=== PATIENT | male | born 1990 | race Caucasian/White ===

== ENCOUNTER 2021-03-31 17:52 | Emergency (ER) | payer OTHER ==
[2021-03-31 19:28] LABS: BASOPHIL 0.3 % (0-2); HCT 44.3 % (42.0-52.0); HGB 14.8 g/dl (13.2-18.0); LYMPHOCYTE 47.9 % (15-48); MCHC 33.4 g/dL (32.0-36.0); MCV 92.9 fL (78.0-100.0); MONOCYTE 12.9 % (0-12); MPV 8.8 fL (6.0-9.5); NEUTROPHIL 37.6 % (41-80); NRBC 0; PLT 255 K/uL (150-400); RBC 4.77 M/uL (4.70-6.00); RDW 12.3 % (11.5-14.0); WBC 7.2 K/uL (4.0-10.5)
[2021-03-31 19:59] LABS: ALBUMIN 4.3 g/dL (3.4-5.0); BILIRUBIN - TOTAL 0.6 mg/dL (0.2-1.0); BUN/CREAT RATIO (CALC) 18.2 RATIO; CREATININE 0.77 mg/dL (0.67-1.17); GLOBULIN (CALCULATION) 3.8 g/dL; POTASSIUM 3.9 mmol/L (3.5-5.1); TOTAL PROTEIN 8.1 g/dL (6.4-8.2)
[2021-03-31] MEDS ORDERED: BACTRIM DS TAB1 EACH PO (20:14)
== END 2021-03-31 20:30 | disposition home or self-care (01) ==
LOC: FER 17:52
PROVIDERS: Emergency Medicine
DX: S30.1XXA Contusion of abdominal wall, initial encounter (principal); F17.210 Nicotine dependence, cigarettes, uncomplicated; V86.99XA Unspecified occupant of other special all-terrain or other off-road motor vehicle injured in nontraffic accident, initial encounter
CPT/HCPCS: 36415; 72170; 80053; 85025; 87040

== ENCOUNTER 2021-04-05 17:09 | Emergency (ER) | payer OTHER ==
[~2021-04-05 17:09] MED LIST: BACTRIM DS TAB1 EACH PO
[2021-04-05] MEDS ORDERED: BACTRIM DS TAB1 EACH PO (19:31)
== END 2021-04-05 19:55 | disposition home or self-care (01) ==
LOC: FER 17:09
DX: L02.415 Cutaneous abscess of right lower limb (principal)
CPT/HCPCS: 87070; 87205; J2001